=== PATIENT | male | born 1980 ===

== ENCOUNTER 2018-07-08 06:23 | Outpatient (CLI) | payer OTHER | END 2018-07-08 06:31 | disposition home or self-care (01) | LOC: LAB 06:23 | DX: E11.9 Type 2 diabetes mellitus without complications (principal) ==

== ENCOUNTER 2018-07-09 08:35 | Outpatient (CLI) | payer OTHER | END 2018-07-09 08:36 | disposition home or self-care (01) | LOC: SONOGRAMA 08:35 → EDSEX 08:45 → EDBD 08:45 → MAMO-SONO 08:45 | DX: K80.20 Calculus of gallbladder without cholecystitis without obstruction (principal) ==

== ENCOUNTER 2018-09-19 09:44 | Outpatient (CLI) | payer OTHER | END 2018-09-19 09:47 | disposition home or self-care (01) | LOC: LAB 09:44 | DX: R00.2 Palpitations (principal); I11.9 Hypertensive heart disease without heart failure; E78.2 Mixed hyperlipidemia; E11.9 Type 2 diabetes mellitus without complications ==

== ENCOUNTER 2019-03-11 09:14 | Outpatient (CLI) | payer OTHER | END 2019-03-11 09:20 | disposition home or self-care (01) | LOC: SONOGRAMA 09:14 | DX: I86.1 Scrotal varices (principal) ==

== ENCOUNTER 2021-08-01 03:48 | Emergency (ER) | payer OTHER ==
[~2021-08-01] VITALS: Ht 172.7 cm; Wt 77.1 kg
[2021-08-01] MEDS ORDERED: MECLIZINE HCL25 MG PO (07:11)
== END 2021-08-01 07:33 ==
LOC: ER 03:48
DX: R42 Dizziness and giddiness (principal); R55 Syncope and collapse